=== PATIENT | male | born 1960 | race Caucasian/White ===

== ENCOUNTER 2018-12-20 11:57 | Inpatient (IN) | payer OTHER ==
[~2018-12-20] VITALS: Ht 188 cm; Wt 172.8 kg
[2018-12-20] VITALS (10 sets, daily range): BP systolic 111–153
[2018-12-20] MEDS ORDERED: IPRATROPIUM/ALBUTEROL SULFATE 3 ML AMPUL.NEB (DUONEB) INH ONE (12:30)
[2018-12-20 12:56] LABS: CREATININE 1.21 mg/dL (0.55-1.30); POTASSIUM 4.1 mmol/L (3.5-5.1)
[2018-12-20 13:02] LABS: ALBUMIN 3.3 g/dL (3.4-4.8); TOTAL BILIRUBIN 0.4 mg/dL (0.0-1.0)
[2018-12-20] MEDS ORDERED: LIP20 PO (13:21)
[2018-12-20] MEDS ORDERED: ASCO500T20 PO (13:21)
[2018-12-20] MEDS ORDERED: FAMO1TAB29 PO (13:21)
[2018-12-20] MEDS ORDERED: INSU100V SQ (13:21)
[2018-12-20] MEDS ORDERED: PEDI0.2517 PO (13:21)
[2018-12-20] MEDS ORDERED: METO25TA6 PO (13:21)
[2018-12-20] MEDS ORDERED: PRO40 PO (13:21)
[2018-12-20] MEDS ORDERED: PREG75CA PO (13:21)
[2018-12-20] MEDS ORDERED: APIX5TAB PO (13:21)
[2018-12-20] MEDS ORDERED: ALBU2.5V7 INH (13:21)
[2018-12-20] MEDS ORDERED: CEL20 PO (13:21)
[2018-12-20] MEDS ORDERED: SENN8.6T19 PO (13:21)
[2018-12-20] MEDS ORDERED: FURO-149 PO (13:21)
[2018-12-20] MEDS ORDERED: INSU100V9 SQ (13:21)
[2018-12-20] MEDS ORDERED: LORA-258 PO (13:21)
[2018-12-20] MEDS ORDERED: DULO60CA41 PO (13:21)
[2018-12-20] MEDS ORDERED: THIA100T73 PO (13:21)
[2018-12-20] MEDS ORDERED: DOCU-144 PO (13:21)
[2018-12-20] MEDS ORDERED: CALC-940 PO (13:21)
[2018-12-20] MEDS ORDERED: PERD5 PO (13:21)
[2018-12-20 13:41] LABS: BASOPHILS % (AUTO) 0.5 % (0.0-2.0); EOSINOPHILS # (AUTO) 0.1 K/uL (0.0-0.4); EOSINOPHILS % (AUTO) 0.7 % (0.0-4.0); HEMATOCRIT 36.7 % (36-54); HEMOGLOBIN 11.3 g/dL (14.0-18.0); LYMPHOCYTES # (AUTO) 1.6 K/uL (1.0-5.5); LYMPHOCYTES % (AUTO) 22.9 % (20.5-51.5); MEAN CORPUSCULAR HEMOGLOBIN 24 pg (27-31); MEAN CORPUSCULAR HGB CONC 31 % (32-36); MEAN CORPUSCULAR VOLUME 78 fL (79.0-98.0); MONOCYTES # (AUTO) 0.7 K/uL (0.0-1.0); MONOCYTES % (AUTO) 9.8 % (1.7-9.3); NEUTROPHILS # (AUTO) 4.6 K/uL (1.8-7.7); NEUTROPHILS % (AUTO) 66.1 % (40.0-70.0); PLATELET COUNT (AUTO) 178 K/uL (130-430); RED BLOOD CELL COUNT(AUTO) 4.69 MIL/uL (4.2-6.2); RED CELL DISTRIBUTION WIDTH 16.7 % (9.0-15.0)
[2018-12-20 14:22] LABS: INR 1.2 (0.80-1.20); PROTHROMBIN TIME 11.6 SECS (9.5-12.5)
[2018-12-20 15:44] LABS: BILIRUBIN,URINE NEGATIVE (NEGATIVE); BLOOD, URINE NEGATIVE (NEGATIVE); CLARITY/URINE CLEAR (CLEAR); COLOR,URINE YELLOW (YELLOW); GLUCOSE,URINE NEGATIVE (NEGATIVE); KETONES,URINE NEGATIVE (NEGATIVE); LEUKOCYTE ESTERASE ,URINE NEGATIVE (NEGATIVE); NITRITE, URINE NEGATIVE (NEGATIVE); PH,URINE 5.5 (5.0-8.0); PROTEIN URINE NEGATIVE (NEGATIVE); UROBILINOGEN,URINE 0.2 (0.2-1.0)
[2018-12-20] MEDS ORDERED: D5/0.45 NS 1,000 ML IV ONE (15:45)
[2018-12-20] MEDS ORDERED: APIXABAN 2.5 MG TABLET PO SCH (17:45)
[2018-12-20] MEDS ORDERED: D5W 1,000 ML IV PRN (21:32)
[2018-12-20] MEDS ORDERED: DEXTROSE 50% JECT 50 ML DISP.SYRIN IVP PRN (21:45)
[2018-12-21] VITALS (17 sets, daily range): BP systolic 102–159
[2018-12-21] MEDS ORDERED: ALBUTEROL SULFATE 0.083% 2.5 MG/3 ML VIAL.NEB INH PRN
[2018-12-21] MEDS ORDERED: GLUCOSE 15 GM GEL (in 37.5 GM TUBE) PO PRN
[2018-12-21] MEDS ORDERED: OXYCODONE PO SCH
[2018-12-21] MEDS ORDERED: ASPIRIN PO SCH
[2018-12-21] MEDS ORDERED: LORazepam 1 MG TABLET PO PRN
[2018-12-21] MEDS: MORPHINE 2 MG/ML INJ. SYRINGE IVP PRN ×6 (00:09→21:21)
[2018-12-21] MEDS: INSULIN REGULAR, HUMAN 100 UNITS/ML, 10 ML VIAL (humuLIN R) SUBCUT PRN ×5 (00:18→21:25)
[2018-12-21] MEDS ORDERED: D5/0.45 NS 1,000 ML IV SCH (04:00)
[2018-12-21] MEDS: PANTOPRAZOLE SODIUM 40 MG TAB PO SCH (06:04)
[2018-12-21] MEDS: DOCUSATE SODIUM 100 MG CAPSULE PO SCH ×2 (08:47→20:30)
[2018-12-21] MEDS: PREGABALIN 75 MG CAPSULE (LYRICA) PO SCH ×3 (08:47→20:09)
[2018-12-21] MEDS: DULoxetine HCL 30 MG CAPSULE.DR (CYMBALTA) PO SCH ×2 (08:47→20:09)
[2018-12-21] MEDS: CITALOPRAM HYDROBROMIDE 20 MG TABLET PO SCH (08:49)
[2018-12-21] MEDS: THIAMINE HCL 100 MG TABLET PO SCH (08:49)
[2018-12-21] MEDS: SENNOSIDES 8.6 MG TABLET PO SCH (08:49)
[2018-12-21] MEDS: ASCORBIC ACID 500 MG TABLET PO SCH (08:49)
[2018-12-21] MEDS: FUROSEMIDE 40 MG TABLET PO SCH ×2 (08:51→20:09)
[2018-12-21] MEDS: APIXABAN 2.5 MG TABLET PO SCH ×2 (08:52→20:13)
[2018-12-21] MEDS ORDERED: LEVOFLOXACIN 500 MG/D5W 100 ML IV SCH ×2 (09:00)
[2018-12-21] MEDS ORDERED: METOPROLOL TARTRATE 25 MG TABLET PO SCH (09:00)
[2018-12-21 09:15] LABS: CALCIUM 8.9 mg/dL (8.4-11.0); CREATININE 1.14 mg/dL (0.55-1.30); POTASSIUM 3.5 mmol/L (3.5-5.1)
[2018-12-21] MEDS: LEVOFLOXACIN 500 MG/D5W 100 ML IV SCH (09:15)
[2018-12-21] MEDS ORDERED: METOPROLOL SUCCINATE 50 MG TAB.SR.24H (TOPROL XL) PO ONE (09:15)
[2018-12-21 09:22] LABS: BASOPHILS % (AUTO) 0.6 % (0.0-2.0); EOSINOPHILS % (AUTO) 0.8 % (0.0-4.0); HEMATOCRIT 33.8 % (36-54); HEMOGLOBIN 10.4 g/dL (14.0-18.0); LYMPHOCYTES # (AUTO) 1.4 K/uL (1.0-5.5); LYMPHOCYTES % (AUTO) 28.3 % (20.5-51.5); MEAN CORPUSCULAR HEMOGLOBIN 24 pg (27-31); MEAN CORPUSCULAR HGB CONC 31 % (32-36); MEAN CORPUSCULAR VOLUME 78 fL (79.0-98.0); MONOCYTES # (AUTO) 0.5 K/uL (0.0-1.0); MONOCYTES % (AUTO) 10.6 % (1.7-9.3); NEUTROPHILS # (AUTO) 2.9 K/uL (1.8-7.7); NEUTROPHILS % (AUTO) 59.7 % (40.0-70.0); PLATELET COUNT (AUTO) 150 K/uL (130-430); RED BLOOD CELL COUNT(AUTO) 4.36 MIL/uL (4.2-6.2); RED CELL DISTRIBUTION WIDTH 16.5 % (9.0-15.0); WHITE BLOOD COUNT (AUTO) 4.8 K/uL (4.8-10.8)
[2018-12-21 09:30] LABS: ALBUMIN 3.1 g/dL (3.4-4.8); THYROID STIMULATING HORMONE 0.72 uIu/mL (0.34-4.82); TOTAL BILIRUBIN 0.5 mg/dL (0.0-1.0)
[2018-12-21] MEDS: DIPHENHYDRAMINE HCL 25 MG CAPSULE PO PRN ×2 (10:05→19:54)
[2018-12-21] MEDS: PEG 400/HYPROMELLOSE/GLYCERIN 15 ML DROPS OP SCH ×3 (12:09→20:30)
[2018-12-21] MEDS: CALCIUM CARBONATE 500 MG/ TAB.CHEW PO PRN (19:54)
[2018-12-21] MEDS: ATORVASTATIN 20 MG TABLET PO SCH (20:08)
[2018-12-21] MEDS: INSULIN GLARGINE 100 UNITS/ML 10 ML VIAL SUBCUT SCH (21:24)
[2018-12-22 01:23] VITALS: BP_SYST 108
[2018-12-22] MEDS: MORPHINE 2 MG/ML INJ. SYRINGE IVP PRN ×5 (02:04→20:23)
[2018-12-22] MEDS: PANTOPRAZOLE SODIUM 40 MG TAB PO SCH (06:28)
[2018-12-22 06:30] LABS: BASOPHILS % (AUTO) 0.8 % (0.0-2.0); EOSINOPHILS % (AUTO) 0.9 % (0.0-4.0); HEMATOCRIT 31.8 % (36-54); HEMOGLOBIN 9.7 g/dL (14.0-18.0); LYMPHOCYTES # (AUTO) 1.5 K/uL (1.0-5.5); LYMPHOCYTES % (AUTO) 29.4 % (20.5-51.5); MEAN CORPUSCULAR HEMOGLOBIN 24 pg (27-31); MEAN CORPUSCULAR HGB CONC 31 % (32-36); MEAN CORPUSCULAR VOLUME 78 fL (79.0-98.0); MONOCYTES # (AUTO) 0.6 K/uL (0.0-1.0); MONOCYTES % (AUTO) 10.8 % (1.7-9.3); NEUTROPHILS % (AUTO) 58.1 % (40.0-70.0); PLATELET COUNT (AUTO) 145 K/uL (130-430); RED BLOOD CELL COUNT(AUTO) 4.07 MIL/uL (4.2-6.2); RED CELL DISTRIBUTION WIDTH 16.5 % (9.0-15.0); WHITE BLOOD COUNT (AUTO) 5.1 K/uL (4.8-10.8)
[2018-12-22] MEDS: INSULIN REGULAR, HUMAN 100 UNITS/ML, 10 ML VIAL (humuLIN R) SUBCUT PRN ×4 (06:34→20:30)
[2018-12-22 06:54] LABS: ALANINE AMINOTRANSFERASE 24 U/L (12-78); ALBUMIN 2.9 g/dL (3.4-4.8); ASPARTATE AMINOTRANSFERASE 20 U/L (10-37); CALCIUM 8.5 mg/dL (8.4-11.0); CHLORIDE 103 mmol/L (98-107); CREATININE 1.18 mg/dL (0.55-1.30); GLUCOSE 160 mg/dL (70-99); POTASSIUM 4.1 mmol/L (3.5-5.1); SODIUM SERUM 140 mmol/L (136-145); THYROID STIMULATING HORMONE 0.52 uIu/mL (0.34-4.82); TOTAL BILIRUBIN 0.4 mg/dL (0.0-1.0); UREA NITROGEN, BLOOD 25 mg/dL (8-21)
[2018-12-22 06:55] LABS: ANION GAP < 3 (5-15); GFR AFRICAN AMERICAN 81 mL/min (>90)
[2018-12-22 07:55] VITALS: BP_SYST 125
[2018-12-22] MEDS: DOCUSATE SODIUM 100 MG CAPSULE PO SCH ×2 (08:12→20:24)
[2018-12-22] MEDS: LEVOFLOXACIN 500 MG/D5W 100 ML IV SCH (08:12)
[2018-12-22] MEDS: CITALOPRAM HYDROBROMIDE 20 MG TABLET PO SCH (08:13)
[2018-12-22] MEDS: DULoxetine HCL 30 MG CAPSULE.DR (CYMBALTA) PO SCH ×2 (08:13→20:24)
[2018-12-22] MEDS: METOPROLOL SUCCINATE 50 MG TAB.SR.24H (TOPROL XL) PO SCH (08:13)
[2018-12-22] MEDS: APIXABAN 2.5 MG TABLET PO SCH ×2 (08:15→20:25)
[2018-12-22] MEDS: THIAMINE HCL 100 MG TABLET PO SCH (08:15)
[2018-12-22] MEDS: SENNOSIDES 8.6 MG TABLET PO SCH (08:15)
[2018-12-22] MEDS: FUROSEMIDE 40 MG TABLET PO SCH ×2 (08:15→20:26)
[2018-12-22] MEDS: PREGABALIN 75 MG CAPSULE (LYRICA) PO SCH ×3 (08:15→20:24)
[2018-12-22] MEDS: ASCORBIC ACID 500 MG TABLET PO SCH (08:15)
[2018-12-22] MEDS: PEG 400/HYPROMELLOSE/GLYCERIN 15 ML DROPS OP SCH ×4 (08:16→20:27)
[2018-12-22 11:50] VITALS: BP_SYST 116
[2018-12-22 16:13] VITALS: BP_SYST 133
[2018-12-22 20:00] VITALS: BP_SYST 132
[2018-12-22] MEDS: ATORVASTATIN 20 MG TABLET PO SCH (20:24)
[2018-12-22] MEDS: INSULIN GLARGINE 100 UNITS/ML 10 ML VIAL SUBCUT SCH (20:29)
[2018-12-23] MEDS: MORPHINE 2 MG/ML INJ. SYRINGE IVP PRN ×6 (00:23→21:44)
[2018-12-23 01:20] VITALS: BP_SYST 138
[2018-12-23] MEDS: DIPHENHYDRAMINE HCL 25 MG CAPSULE PO PRN ×2 (04:27→22:06)
[2018-12-23] MEDS: PANTOPRAZOLE SODIUM 40 MG TAB PO SCH (06:09)
[2018-12-23] MEDS: INSULIN REGULAR, HUMAN 100 UNITS/ML, 10 ML VIAL (humuLIN R) SUBCUT PRN ×4 (06:13→22:06)
[2018-12-23 08:01] VITALS: BP_SYST 153
[2018-12-23] MEDS: LEVOFLOXACIN 500 MG/D5W 100 ML IV SCH (08:49)
[2018-12-23] MEDS: DULoxetine HCL 30 MG CAPSULE.DR (CYMBALTA) PO SCH ×2 (08:50→21:39)
[2018-12-23] MEDS: METOPROLOL SUCCINATE 50 MG TAB.SR.24H (TOPROL XL) PO SCH (08:50)
[2018-12-23] MEDS: PREGABALIN 75 MG CAPSULE (LYRICA) PO SCH ×3 (08:50→21:38)
[2018-12-23] MEDS: DOCUSATE SODIUM 100 MG CAPSULE PO SCH ×2 (08:50→21:38)
[2018-12-23] MEDS: SENNOSIDES 8.6 MG TABLET PO SCH (08:51)
[2018-12-23] MEDS: THIAMINE HCL 100 MG TABLET PO SCH (08:51)
[2018-12-23] MEDS: CITALOPRAM HYDROBROMIDE 20 MG TABLET PO SCH (08:51)
[2018-12-23] MEDS: ASCORBIC ACID 500 MG TABLET PO SCH (08:51)
[2018-12-23] MEDS: APIXABAN 2.5 MG TABLET PO SCH ×2 (08:52→21:54)
[2018-12-23] MEDS: FUROSEMIDE 40 MG TABLET PO SCH ×2 (08:53→21:39)
[2018-12-23] MEDS: PEG 400/HYPROMELLOSE/GLYCERIN 15 ML DROPS OP SCH ×3 (09:00→21:37)
[2018-12-23] MEDS: CALCIUM CARBONATE 500 MG/ TAB.CHEW PO PRN ×2 (09:06→18:53)
[2018-12-23 12:45] VITALS: BP_SYST 126
[2018-12-23 16:15] VITALS: BP_SYST 112
[2018-12-23 17:16] VITALS: BP_SYST 126
[2018-12-23 20:00] VITALS: BP_SYST 145
[2018-12-23] MEDS: MUPIROCIN 2% TOPICAL OINTMENT 22 GM NS SCH (21:38)
[2018-12-23] MEDS: ATORVASTATIN 20 MG TABLET PO SCH (21:38)
[2018-12-23] MEDS: INSULIN GLARGINE 100 UNITS/ML 10 ML VIAL SUBCUT SCH (22:05)
[2018-12-24] MEDS: MORPHINE 2 MG/ML INJ. SYRINGE IVP PRN ×5 (02:52→21:25)
[2018-12-24 05:36] VITALS: BP_SYST 127
[2018-12-24] MEDS: INSULIN REGULAR, HUMAN 100 UNITS/ML, 10 ML VIAL (humuLIN R) SUBCUT PRN ×4 (06:26→21:44)
[2018-12-24] MEDS: PANTOPRAZOLE SODIUM 40 MG TAB PO SCH (06:27)
[2018-12-24 07:28] LABS: BASOPHILS % (AUTO) 0.8 % (0.0-2.0); EOSINOPHILS % (AUTO) 0.7 % (0.0-4.0); HEMATOCRIT 32.5 % (36-54); LYMPHOCYTES # (AUTO) 1.2 K/uL (1.0-5.5); LYMPHOCYTES % (AUTO) 24.3 % (20.5-51.5); MEAN CORPUSCULAR HEMOGLOBIN 24 pg (27-31); MEAN CORPUSCULAR HGB CONC 31 % (32-36); MEAN CORPUSCULAR VOLUME 78 fL (79.0-98.0); MONOCYTES # (AUTO) 0.5 K/uL (0.0-1.0); MONOCYTES % (AUTO) 10.5 % (1.7-9.3); NEUTROPHILS # (AUTO) 3.2 K/uL (1.8-7.7); NEUTROPHILS % (AUTO) 63.7 % (40.0-70.0); PLATELET COUNT (AUTO) 141 K/uL (130-430); RED BLOOD CELL COUNT(AUTO) 4.16 MIL/uL (4.2-6.2); RED CELL DISTRIBUTION WIDTH 16.5 % (9.0-15.0); WHITE BLOOD COUNT (AUTO) 5.1 K/uL (4.8-10.8)
[2018-12-24 07:46] LABS: ALANINE AMINOTRANSFERASE 20 U/L (12-78); ALBUMIN 2.8 g/dL (3.4-4.8); ASPARTATE AMINOTRANSFERASE 15 U/L (10-37); CHLORIDE 100 mmol/L (98-107); CREATININE 1.24 mg/dL (0.55-1.30); GLUCOSE 160 mg/dL (70-99); POTASSIUM 4.3 mmol/L (3.5-5.1); SODIUM SERUM 137 mmol/L (136-145); TOTAL BILIRUBIN 0.5 mg/dL (0.0-1.0); UREA NITROGEN, BLOOD 23 mg/dL (8-21)
[2018-12-24 07:50] LABS: ANION GAP < 3 (5-15); GFR AFRICAN AMERICAN 76 mL/min (>90)
[2018-12-24] MEDS: APIXABAN 2.5 MG TABLET PO SCH ×2 (09:26→21:30)
[2018-12-24] MEDS: DOCUSATE SODIUM 100 MG CAPSULE PO SCH ×2 (09:27→21:29)
[2018-12-24] MEDS: METOPROLOL SUCCINATE 50 MG TAB.SR.24H (TOPROL XL) PO SCH (09:27)
[2018-12-24] MEDS: PREGABALIN 75 MG CAPSULE (LYRICA) PO SCH ×3 (09:27→21:25)
[2018-12-24] MEDS: FUROSEMIDE 40 MG TABLET PO SCH ×2 (09:27→21:29)
[2018-12-24] MEDS: SENNOSIDES 8.6 MG TABLET PO SCH (09:28)
[2018-12-24] MEDS: PEG 400/HYPROMELLOSE/GLYCERIN 15 ML DROPS OP SCH ×4 (09:28→21:31)
[2018-12-24] MEDS: CITALOPRAM HYDROBROMIDE 20 MG TABLET PO SCH (09:28)
[2018-12-24] MEDS: ASCORBIC ACID 500 MG TABLET PO SCH (09:28)
[2018-12-24] MEDS: DULoxetine HCL 30 MG CAPSULE.DR (CYMBALTA) PO SCH ×2 (09:28→21:24)
[2018-12-24] MEDS: MUPIROCIN 2% TOPICAL OINTMENT 22 GM NS SCH ×2 (09:29→21:30)
[2018-12-24] MEDS: THIAMINE HCL 100 MG TABLET PO SCH (09:29)
[2018-12-24] MEDS ORDERED: DIAMOX SEQUELS 500 MG CAPSULE.SA PO ONE (10:00)
[2018-12-24] MEDS ORDERED: acetaZOLAMIDE 250 MG TABLET (DIAMOX) PO ONE (10:15)
[2018-12-24 12:30] VITALS: BP_SYST 119
[2018-12-24 16:36] VITALS: BP_SYST 120
[2018-12-24] MEDS: DIPHENHYDRAMINE HCL 25 MG CAPSULE PO PRN (17:03)
[2018-12-24 20:00] VITALS: BP_SYST 112
[2018-12-24] MEDS: acetaZOLAMIDE 250 MG TABLET (DIAMOX) PO SCH (21:25)
[2018-12-24] MEDS: ATORVASTATIN 20 MG TABLET PO SCH (21:29)
[2018-12-24] MEDS: LEVOFLOXACIN 500 MG TABLET PO SCH (21:29)
[2018-12-24] MEDS: INSULIN GLARGINE 100 UNITS/ML 10 ML VIAL SUBCUT SCH (21:42)
[2018-12-25 01:16] VITALS: BP_SYST 123
[2018-12-25] MEDS: MORPHINE 2 MG/ML INJ. SYRINGE IVP PRN ×5 (02:29→20:11)
[2018-12-25] MEDS: DIPHENHYDRAMINE HCL 25 MG CAPSULE PO PRN ×3 (02:43→20:32)
[2018-12-25] MEDS: CALCIUM CARBONATE 500 MG/ TAB.CHEW PO PRN (04:58)
[2018-12-25] MEDS: PANTOPRAZOLE SODIUM 40 MG TAB PO SCH (06:00)
[2018-12-25] MEDS: INSULIN REGULAR, HUMAN 100 UNITS/ML, 10 ML VIAL (humuLIN R) SUBCUT PRN ×4 (06:03→20:31)
[2018-12-25 08:00] VITALS: BP_SYST 105
[2018-12-25] MEDS: APIXABAN 2.5 MG TABLET PO SCH ×2 (08:49→20:27)
[2018-12-25] MEDS: FUROSEMIDE 40 MG TABLET PO SCH ×2 (08:50→20:08)
[2018-12-25] MEDS: SENNOSIDES 8.6 MG TABLET PO SCH (08:50)
[2018-12-25] MEDS: PREGABALIN 75 MG CAPSULE (LYRICA) PO SCH ×3 (08:50→20:09)
[2018-12-25] MEDS: ASCORBIC ACID 500 MG TABLET PO SCH (08:50)
[2018-12-25] MEDS: CITALOPRAM HYDROBROMIDE 20 MG TABLET PO SCH (08:50)
[2018-12-25] MEDS: DOCUSATE SODIUM 100 MG CAPSULE PO SCH ×2 (08:51→20:07)
[2018-12-25] MEDS: THIAMINE HCL 100 MG TABLET PO SCH (08:51)
[2018-12-25] MEDS: METOPROLOL SUCCINATE 50 MG TAB.SR.24H (TOPROL XL) PO SCH (08:51)
[2018-12-25] MEDS: DULoxetine HCL 30 MG CAPSULE.DR (CYMBALTA) PO SCH ×2 (08:51→20:08)
[2018-12-25] MEDS: acetaZOLAMIDE 250 MG TABLET (DIAMOX) PO SCH ×2 (08:54→20:08)
[2018-12-25] MEDS: MUPIROCIN 2% TOPICAL OINTMENT 22 GM NS SCH ×2 (08:54→20:35)
[2018-12-25] MEDS: PEG 400/HYPROMELLOSE/GLYCERIN 15 ML DROPS OP SCH ×4 (08:55→20:35)
[2018-12-25 11:32] VITALS: BP_SYST 117
[2018-12-25 15:07] VITALS: BP_SYST 119
[2018-12-25 19:59] VITALS: BP_SYST 122
[2018-12-25] MEDS: LEVOFLOXACIN 500 MG TABLET PO SCH (20:08)
[2018-12-25] MEDS: ATORVASTATIN 20 MG TABLET PO SCH (20:09)
[2018-12-25] MEDS: INSULIN GLARGINE 100 UNITS/ML 10 ML VIAL SUBCUT SCH (20:25)
[2018-12-26 00:29] VITALS: BP_SYST 113
[2018-12-26] MEDS: MORPHINE 2 MG/ML INJ. SYRINGE IVP PRN ×5 (00:31→16:21)
[2018-12-26] MEDS: PANTOPRAZOLE SODIUM 40 MG TAB PO SCH (06:06)
[2018-12-26 08:00] VITALS: BP_SYST 118
[2018-12-26] MEDS: THIAMINE HCL 100 MG TABLET PO SCH (08:18)
[2018-12-26] MEDS: SENNOSIDES 8.6 MG TABLET PO SCH (08:18)
[2018-12-26] MEDS: ASCORBIC ACID 500 MG TABLET PO SCH (08:18)
[2018-12-26] MEDS: acetaZOLAMIDE 250 MG TABLET (DIAMOX) PO SCH (08:18)
[2018-12-26] MEDS: DOCUSATE SODIUM 100 MG CAPSULE PO SCH (08:18)
[2018-12-26] MEDS: PREGABALIN 75 MG CAPSULE (LYRICA) PO SCH ×2 (08:19→14:00)
[2018-12-26] MEDS: CITALOPRAM HYDROBROMIDE 20 MG TABLET PO SCH (08:19)
[2018-12-26] MEDS: DULoxetine HCL 30 MG CAPSULE.DR (CYMBALTA) PO SCH (08:19)
[2018-12-26] MEDS: METOPROLOL SUCCINATE 50 MG TAB.SR.24H (TOPROL XL) PO SCH (08:20)
[2018-12-26] MEDS: MUPIROCIN 2% TOPICAL OINTMENT 22 GM NS SCH (08:20)
[2018-12-26] MEDS: FUROSEMIDE 40 MG TABLET PO SCH (08:20)
[2018-12-26] MEDS: PEG 400/HYPROMELLOSE/GLYCERIN 15 ML DROPS OP SCH ×2 (08:21→14:00)
[2018-12-26] MEDS: APIXABAN 2.5 MG TABLET PO SCH (08:21)
[2018-12-26 08:25] VITALS: BP_SYST 113
[2018-12-26] MEDS: INSULIN REGULAR, HUMAN 100 UNITS/ML, 10 ML VIAL (humuLIN R) SUBCUT PRN (11:17)
[2018-12-26 12:11] VITALS: BP_SYST 114
[2018-12-26 14:35] VITALS: BP_SYST 114
[2018-12-26] MEDS ORDERED: MILK OF MAGNESIA 30 ML UDC PO PRN (15:00)
[2018-12-26 16:30] VITALS: BP_SYST 118
== END 2018-12-26 16:55 | disposition short-term general hospital (02) | DRG 871 ==
LOC: SED 11:57 → SIC 15:38 → STU 12-21 13:50
PROVIDERS: ADMIT Internal Medicine; ATTEND Internal Medicine
PROC: 5A09357 Assistance with Respiratory Ventilation, Less than 24 Consecutive Hours, Continuous Positive Airway Pressure (ICD-10-PCS; principal; 2018-12-20)
PROC: 5A09357 Assistance with Respiratory Ventilation, Less than 24 Consecutive Hours, Continuous Positive Airway Pressure (ICD-10-PCS; 2018-12-20)
DX: A41.9 Sepsis, unspecified organism (principal); J18.1 Lobar pneumonia, unspecified organism; J44.1 Chronic obstructive pulmonary disease with (acute) exacerbation; J96.12 Chronic respiratory failure with hypercapnia; E87.2 Acidosis; Z68.42 Body mass index [BMI] 45.0-49.9, adult; J44.0 Chronic obstructive pulmonary disease with (acute) lower respiratory infection; E11.42 Type 2 diabetes mellitus with diabetic polyneuropathy; E78.5 Hyperlipidemia, unspecified; F03.90 Unspecified dementia, unspecified severity, without behavioral disturbance, psychotic disturbance, mood disturbance, and anxiety; F32.9 Major depressive disorder, single episode, unspecified; F41.9 Anxiety disorder, unspecified; G47.33 Obstructive sleep apnea (adult) (pediatric); G89.4 Chronic pain syndrome; I11.9 Hypertensive heart disease without heart failure; I27.81 Cor pulmonale (chronic); E66.01 Morbid (severe) obesity due to excess calories; I48.2 Chronic atrial fibrillation; Z82.49 Family history of ischemic heart disease and other diseases of the circulatory system; Z83.3 Family history of diabetes mellitus; Z91.19 Patient's noncompliance with other medical treatment and regimen; Z79.899 Other long term (current) drug therapy; Z74.01 Bed confinement status; Z87.81 Personal history of (healed) traumatic fracture
CPT/HCPCS: 36415; 36600; 70450-TC; 71045; 80053; 80061; 81003; 82803-TC; 82962; 83605; 83880; 84443-TC; 84484; 85025; 85610-TC; 85730-TC; 87040-TC; 87081; 87086; 93005; 93306; 94010; 94640; 94660; 94760; 97116-GP; 97530-GP; 99291; G0378; J1815; J1956; J2270; J7060; J7613; J7620; Q0163